=== PATIENT | female | born 1950 | race Caucasian/White ===

== ENCOUNTER 2020-09-19 12:24 | Emergency (ER) | payer MEDICARE, BC ==
[2020-09-19] MEDS ORDERED: Sodium Chloride 0.9% 10 ML Syringe FLUSH PRN (12:47)
--- NOTE | 2020-09-19 12:47 | EDM.PDOC ---
ED HPI GENERAL MEDICAL PROBLEM - General Chief Complaint: Respiratory Problem Stated Complaint: covid positive, coughing, "cant breath" Time Seen by Provider: 09/19/20 12:25 Source of Information: Reports: Patient. Denies: Old Records (No [facility] records available) History Limitations: Reports: No Limitations - History of Present Illness INITIAL COMMENTS - FREE TEXT/NARRATIVE: Patient drove herself to the emergency room for evaluation of the 2-day history of progressive nonspecific dyspnea with patient diagnosed with COVID-19 1 week ago and is about ready to end her quarantine on 09/22/2020. She continues to have intermittent nonspecific fever and chills, however not this morning with no recent antipyretic medications taken. She also has occasional nonspecific GI complaints, including occasional nausea with one episode of emesis yesterday. The patient also denies any recent wheezing, dyspnea, etc., although somewhat worsening nonproductive cough during the last couple of days. No recent history of abdominal pain, heartburn, diarrhea, melena, gross hematochezia, or any food intolerance, including fatty foods, etc.. The patient denies any chest p ain/pressure, heart flutter, dizziness, orthostasis, orthopnea, diaphoresis, paresthesias, recent decreased exercise tolerance, or any other anginal-type symptoms. She denies any gross hematuria, colic, or other UTI symptoms. Patient denies any specific other pain or discomfort. Onset: Gradual Duration: Getting Worse Location: Reports: Other (No pain) Severity: Moderate Improves with: Reports: Rest Worsens with: Reports: Movement (Activity) Context: Reports: Sick Contact (COVID-19 as above), Other (As above). Denies: Trauma Associated Symptoms: Reports: Cough, Fever/Chills, Nausea/Vomiting, Shortness of Breath. Denies: Confusion, Chest Pain, cough w sputum, Diaphoresis, Headaches, Loss of Appetite, Malaise, Rash, Weakness Treatments SPEAR FISHER: Reports: Other (see below) (None) - Related Data Allergies Allergy/AdvReac Type Severity Reaction Status Date / Time No Known Allergies Allergy Verified 09/19/20 12:25 Home Meds: Home Meds Insulin Glargine,Hum.Rec.Anlog [Basaglar Kwikpen U-100] 32 units SQ DAILY 09/19/20 [History] Losartan [Cozaar] 25 mg PO DAILY 09/19/20 [History] Simvastatin 20 mg PO BEDTIME 09/19/20 [History] metFORMIN [Glucophage XR] 500 mg PO BIDMEALS 09/19/20 [History] Past Medical History HEENT History: Reports: Impaired Vision, Other (See Below) Other HEENT History: The patient wears glasses. Cardiovascular History: Reports: High Cholesterol, Hypertension. Denies: Afib, Aneurysm, Arrhythmia, Blood Clots/VTE/DVT, CAD, Heart Failure, Heart Murmur, Syncope Respiratory History: Denies: Asthma, COPD Musculoskeletal History: Reports: Arthritis, Osteoarthritis Endocrine/Metabolic History: Reports: Diabetes, Type II, IDDM - Infectious Disease History Infectious Disease History: Reports: Novel Coronavirus (COVID-19 09/12/2020) Social & Family History - Tobacco Use Tobacco Use Status *Q: Never Tobacco User Tobacco Use Within Last Twelve Months: No Used Tobacco, but Quit: No Smoking Cessation Information Provided To Patient: No Second Hand Smoke Exposure: No Second Hand Smoke Education Provided: No ED ROS GENERAL - Review of Systems Review Of Systems: Comprehensive ROS is negative, except as noted in HPI. ED EXAM, GENERAL - Physical Exam Exam: See Below Exam Limited By: No Limitations General Appearance: Alert, WD/WN, No Apparent Distress Eye Exam: Bilateral Eye: EOMI, Normal Inspection (No vertical nystagmus. Patient does wear glasses.), PERRL Ears: Normal External Exam, Normal Canal, Hearing Grossly Normal, Normal TMs Nose: Normal Mucosa, No Blood, Nasal Drainage, Clear Rhinorrhea Throat/Mouth: Normal Inspection, Normal Lips, Normal Teeth, Normal Gums, Normal Oropharynx, Normal Voice, No Airway Compromise. No: Dysphagia, Perioral Cyanosis Head: Atraumatic, Normocephalic. No: Facial Swelling, Facial Tenderness, Sinus Tenderness Neck: Normal Inspection, Supple, Non-Tender, Full Range of Motion. No: Lymphadenopathy (L), Lymphadenopathy (R), Thyromegaly Respiratory/Chest: No Respiratory Distress, No Accessory Muscle Use, Chest Non- Tender, Rales (Mild occasional bilateral rales). No: Rhonchi, Wheezing, Pleural Rub, Retractions Cardiovascular: Normal Peripheral Pulses, Regular Rate, Rhythm, No Edema, No Gallop, No JVD, No Murmur, No Rub, Tachycardia (Occasional borderline). No: Gallop/S3, Gallop/S4, Friction Rub Peripheral Pulses: 2+: Radial (L), Radial (R) GI/Abdominal: Normal Bowel Sounds, Soft, Non-Tender, No Organomegaly, No Distention, No Abnormal Bruit, No Mass, Other (Obese). No: Guarding (Female) Exam: Deferred Rectal (Female) Exam: Deferred Back Exam: Normal Inspection, Full Range of Motion. No: CVA Tenderness (L), CVA Tenderness (R) Extremities: Normal Inspection, Normal Range of Motion, Non-Tender, No Pedal Edema, Normal Capillary Refill. No: Jose's Sign Neurological: Alert, Oriented, CN II-XII Intact, Normal Cognition, Normal Gait, No Motor/Sensory Deficits Psychiatric: Normal Affect, Normal Mood Skin Exam: Warm, Dry, Intact, Normal Color, No Rash. No: Diaphoretic, Wound/Incision Lymphatic: No Adenopathy #1 Interpretation EKG Date: 09/19/20 Time: 13:15 Rhythm: NSR Rate (Beats/Min): 98 [place]: Normal (Neutral cardiac access) P-Wave: Present QRS: Normal ST-T: Normal QT: Normal IN/PQ Interval: 0.14 seconds representing a borderline short IN interval with no delta waves noted. Extreme poor R wave progression in the anterior leads. Comparison: NA - No Prior EKG EKG Interpretation Comments: 1. No acute ischemic changes 2. Borderline short IN interval Course - Vital Signs Last Recorded V/S: Last Vital Signs Temp 37.7 C 09/19/20 17:45 Pulse 97 09/19/20 17:45 Resp 17 09/19/20 17:45 BP 124/81 09/19/20 17:45 Pulse Ox 94 L 09/19/20 17:45 Vital Signs - 24 hr 09/19/20 09/19/20 09/19/20 12:30 15:23 15:39 Temperature [ 37.1 C 37.6 C 37.7 C Temporal] Pulse, 102 H 93 97 Peripheral [ Left Pulse Oximetry] Respiratory 18 18 17 Rate Blood Pressure 123/71 125/69 128/77 [Right Upper Arm] O2 Sat by Pulse 95 96 93 L Oximetry 09/19/20 09/19/20 09/19/20 15:54 16:09 16:24 Temperature [ 37.6 C 37.9 C 37.9 C Temporal] Pulse, 94 93 96 Peripheral [ Left Pulse Oximetry] Respiratory 17 16 18 Rate Blood Pressure 134/93 H 101/74 117/98 H [Right Upper Arm] O2 Sat by Pulse 93 L 93 L 94 L Oximetry 09/19/20 09/19/20 09/19/20 16:39 16:54 17:09 Temperature [ 37.9 C 37.9 C 37.9 C Temporal] Pulse, 96 98 98 Peripheral [ Left Pulse Oximetry] Respiratory 16 16 16 Rate Blood Pressure 117/89 120/64 123/67 [Right Upper Arm] O2 Sat by Pulse 93 L 94 L 94 L Oximetry 09/19/20 09/19/20 17:24 17:45 Temperature [ 37.9 C 37.7 C Temporal] Pulse, 98 97 Peripheral [ Left Pulse Oximetry] Respiratory 16 17 Rate Blood Pressure 120/83 124/81 [Right Upper Arm] O2 Sat by Pulse 94 L 94 L Oximetry - Orders/Labs/Meds Orders: Active Orders 24 hr Category Date Time Status Chest 1V Frontal [CR] Stat Exams 09/19/20 12:47 Taken Chest PE [Ang Chest] [CT] Stat Exams 09/19/20 13:47 Taken Venous Doppler Lwr Ext Bi [US] Urgent Exams 09/19/20 13:48 Taken CULTURE BLOOD [BC] Stat Lab 09/19/20 13:00 Received CULTURE BLOOD [BC] Stat Lab 09/19/20 13:08 Received Blood Culture x2 Reflex Set [OM.PC] Stat Oth 09/19/20 12:47 Ordered Isolation [COMM] Routine Oth 09/19/20 12:48 Active Obtain Past Medical Record [OM.PC] Stat Oth 09/19/20 12:47 Active Peripheral IV Insertion Adult [OM.PC] Stat Oth 09/19/20 12:47 Ordered Resuscitation Status Routine Resus Stat 09/19/20 12:47 Ordered Labs: Laboratory Tests 09/19/20 09/19/20 09/19/20 Range/Units 13:00 13:00 13:00 WBC 3.0 L (4.0-10.2) K/uL RBC 4.38 (3.77-5.09) M/uL Hgb 12.8 (11.7-15.5) g/dL Hct 39.5 (34.0-46.0) % MCV 90.2 (84.0-98.0) fL MCH 29.2 (28.2-33.3) pg MCHC 32.4 (31.7-36.0) g/dL RDW 13.6 (11.2-14.1) % Plt Count 156 (150-350) K/uL Neut % (Auto) 49.1 (45.0-80.0) % Lymph % (Auto) 42.2 (10.0-50.0) % [place] % (Auto) 8.4 (2.0-14.0) % Eos % (Auto) 0.0 (0.0-5.0) % Baso % (Auto) 0.3 (0.0-2.0) % Neut # (Auto) 1.45 (1.40-7.00) K/uL Lymph # (Auto) 1.25 (0.50-3.50) K/uL [place] # (Auto) 0.25 (0.00-1.00) K/uL Eos # (Auto) 0.00 (0.00-0.50) K/uL Baso # (Auto) 0.01 (0.00-0.20) K/uL PT 9.9 (9.5-12.0) SEC INR 1.0 APTT 29.7 (24.5-32.8) SEC D-Dimer, Quantitative 2300 H (0-400) ng/mL Sodium (136-145) mmol/L Potassium (3.5-5.1) mmol/L Chloride (98-107) mmol/L Carbon Dioxide (21.0-32.0) mmol/L BUN (7-18) mg/dL Creatinine (0.51-1.17) mg/dL Est Cr Clr Drug Dosing mL/min Estimated GFR (MDRD) mL/min Glucose (74-106) mg/dL Lactic Acid (0.4-2.0) mmol/L Calcium (8.5-10.1) mg/dL Magnesium (1.8-2.4) mg/dL Total Bilirubin (0.2-1.0) mg/dL AST (15-37) U/L ALT (12-78) U/L Alkaline Phosphatase (46-116) IU/L Creatine Kinase (26-308) U/L Creatine Kinase Index (0.0-2.5) % CK-MB (CK-2) (0.00-3.60) ng/mL Troponin I (0.000-0.056) ng/mL NT-Pro-B Natriuret Pep (0-125) pg/mL Total Protein (6.4-8.2) g/dL Albumin (3.4-5.0) g/dL TSH, Ultra Sensitive (0.358-3.740) mIU/mL 09/19/20 09/19/20 Range/Units 13:00 13:00 WBC (4.0-10.2) K/uL RBC (3.77-5.09) M/uL Hgb (11.7-15.5) g/dL Hct (34.0-46.0) % MCV (84.0-98.0) fL MCH (28.2-33.3) pg MCHC (31.7-36.0) g/dL RDW (11.2-14.1) % Plt Count (150-350) K/uL Neut % (Auto) (45.0-80.0) % Lymph % (Auto) (10.0-50.0) % [place] % (Auto) (2.0-14.0) % Eos % (Auto) (0.0-5.0) % Baso % (Auto) (0.0-2.0) % Neut # (Auto) (1.40-7.00) K/uL Lymph # (Auto) (0.50-3.50) K/uL [place] # (Auto) (0.00-1.00) K/uL Eos # (Auto) (0.00-0.50) K/uL Baso # (Auto) (0.00-0.20) K/uL PT (9.5-12.0) SEC INR APTT (24.5-32.8) SEC D-Dimer, Quantitative (0-400) ng/mL Sodium 135 L (136-145) mmol/L Potassium 3.9 (3.5-5.1) mmol/L Chloride 100 (98-107) mmol/L Carbon Dioxide 25.0 (21.0-32.0) mmol/L BUN 16 (7-18) mg/dL Creatinine 0.90 (0.51-1.17) mg/dL Est Cr Clr Drug Dosing 60.35 mL/min Estimated GFR (MDRD) > 60 mL/min Glucose 121 H (74-106) mg/dL Lactic Acid 1.1 (0.4-2.0) mmol/L Calcium 8.3 L (8.5-10.1) mg/dL Magnesium 1.7 L (1.8-2.4) mg/dL Total Bilirubin 0.6 (0.2-1.0) mg/dL AST 40 H (15-37) U/L ALT 38 (12-78) U/L Alkaline Phosphatase 83 (46-116) IU/L Creatine Kinase 69 (26-308) U/L Creatine Kinase Index 0.7 (0.0-2.5) % CK-MB (CK-2) 0.50 (0.00-3.60) ng/mL Troponin I 0.000 (0.000-0.056) ng/mL NT-Pro-B Natriuret Pep 42 (0-125) pg/mL Total Protein 7.5 (6.4-8.2) g/dL Albumin 3.4 (3.4-5.0) g/dL TSH, Ultra Sensitive 1.522 (0.358-3.740) mIU/mL Meds: Medications Discontinued Medications Generic Name Dose Route Start Last Admin Trade Name Freq PRN Reason Stop Dose Admin Diphenhydramine HCl 50 mg 09/19/20 14:08 Benadryl IVPUSH ONETIME PRN hypersensitivity reaction Epinephrine HCl 0.3 mg 09/19/20 14:08 Adrenalin IM ONETIME PRN hypersensitivity reaction Famotidine 20 mg 09/19/20 14:08 Pepcid IVPUSH ONETIME PRN hypersensitivity reaction Bamlanivimab 700 mg/ Sodium 270 mls @ 270 mls/hr 09/19/20 14:08 09/19/20 15:20 Chloride IV 09/19/20 14:09 270 mls/hr ONETIME ONE Administration Protocol Iopamidol 100 ml 09/19/20 13:00 Isovue-370 (76%) IVPUSH 09/19/20 13:01 ONETIME ONE Iopamidol Confirm 09/19/20 13:59 Isovue-370 (76%) Administered 09/19/20 14:00 Dose 100 ml .ROUTE .STK-MED ONE Methylprednisolone Sodium Succinate 125 mg 09/19/20 14:08 Solu-Medrol IVPUSH ONETIME PRN hypersensitivity reaction Sodium Chloride 10 ml 09/19/20 12:47 Saline Flush FLUSH ASDIRECTED PRN Keep Vein Open Sodium Chloride 30 ml 09/19/20 14:15 Saline Flush FLUSH ASDIRECTED NAVIN - Radiology Interpretation Free Text/Narrative:: monitor technician shows normal sinus rhythm with heart rate in the 90s to low 100s with no ectopy, arrhythmia, etc. Chest x-ray, portable, shows poor inspiratory film with somewhat prominent proximal aortic arch, however no significant cardiomegaly, CHF, pulmonary infiltrates, or pneumothorax. Official x-ray report did indicate some mild possible patchy infiltrates consistent with COVID-19. CTA of the chest using PE protocol was negative for PE with incidental pulmonary changes consistent with COVID-19 and also a small hiatal hernia. Preliminary verbal report from colin Sun tech, of the venous Doppler studies of the lower extremities were negative for DVT. Departure - Departure Time of Disposition: 18:00 Disposition: Home, Self-Care 01 Condition: Good Clinical Impression: COVID-19, Leukopenia, IDDM (insulin dependent diabetes mellitus), Hypertension, Obesity (BMI 30-39.9), Hyperlipidemia, Hypomagnesemia, Hyponatremia, Elevated LFTs, D-dimer, elevated - Discharge Information *PRESCRIPTION DRUG MONITORING PROGRAM REVIEWED*: Not Applicable *COPY OF PRESCRIPTION DRUG MONITORING REPORT IN PATIENT CHELLE: Not Applicable Referrals: Jovita Parsons NP [Primary Care Provider] - Forms: ED Department Discharge Additional Instructions: 1. Followup with your regular provider in 7-10 days as directed for reevaluation and recommended repeat chest x-ray, CBC, comprehensive metabolic panel, INR, PTT, magnesium level, BNP, troponin I and D-dimer. Bring these discharge instructions with you to that visit. 2. Tylenol 650 mg by mouth every 4 hours and/or OTC ibuprofen 2-3 tabs by mouth every 6 hours with food as directed./needed. You may stagger these medications for 48-72 hours only, which essentially means that you are receiving a pain medication about every 2 hours. 3. Maintain quarantine precautions and restrictions as previously directed 4. Immediately after this visit verify that your cellular telephone's voicemail has been activated and is empty. Also verify that your home telephone's answering machine is operating properly and has space to receive messages. Note that it is sometimes necessary for us to be able to contact you at a later date to discuss your medical care. 5. Please remember that we are ALWAYS here for you and want to answer any questions you may have. Feel free to call the hospital any time and we call you back VESTA. Sepsis Event Note (ED) - Evaluation Sepsis Screening Result: No Definite Risk - Focused Exam Vital Signs: Vital Signs Temp Pulse Resp BP Pulse Ox 09/19/20 17:45 37.7 C 97 17 124/81 94 L 09/19/20 17:24 37.9 C 98 16 120/83 94 L 09/19/20 17:09 37.9 C 98 16 123/67 94 L 09/19/20 16:54 37.9 C 98 16 120/64 94 L 09/19/20 16:39 37.9 C 96 16 117/89 93 L 09/19/20 16:24 37.9 C 96 18 117/98 H 94 L 09/19/20 16:09 37.9 C 93 16 101/74 93 L 09/19/20 15:54 37.6 C 94 17 134/93 H 93 L 09/19/20 15:39 37.7 C 97 17 128/77 93 L 09/19/20 15:23 37.6 C 93 18 125/69 96 09/19/20 12:30 37.1 C 102 H 18 123/71 95 - Problem List & Annotations (1) COVID-19 SNOMED Code(s): 080711698 Code(s): U07.1 - COVID-19 Status: Acute Priority: High Onset Date: 09/19/20 Annotation/Comment:: Various therapeutic options were discussed with the patient discussing the risk and benefits of bamlanivimab therapy, including providing the information sheet, which she did sign. She is not a candidate for hospitalization, IV remdesivir, IV Decadron, convalescent plasma, etc. at this time with O2 saturations on room air in the mid 90th percentile. Continue quarantine precautions as previously directed with close follow-up by regular provider as per discharge instructions. Mild viral bronchitis with no evidence of significant pneumonia by today's chest x-ray. (2) D-dimer, elevated SNOMED Code(s): 668186425 Code(s): R79.89 - OTHER SPECIFIED ABNORMAL FINDINGS OF BLOOD CHEMISTRY Status: Acute Priority: High Onset Date: 09/19/20 Annotation/Comment:: CTA of the chest and venous Doppler study of the right lower extremity results were negative as above. D-dimer elevation likely secondary to current inflammatory changes from her COVID-19 bronchitis versus pneumonia. (3) Leukopenia SNOMED Code(s): 70736240, 597127985 Code(s): D72.819 - DECREASED WHITE BLOOD CELL COUNT, UNSPECIFIED Status: Acute Priority: High Onset Date: 09/19/20 Annotation/Comment:: Likely secondary to current viral infection. Observe closely by regular provider. Qualifiers: Leukopenia type: neutropenia Neutropenia type: other Qualified Code(s): D70.8 - Other neutropenia (4) IDDM (insulin dependent diabetes mellitus) SNOMED Code(s): 68878663 Code(s): RMI2385 - Status: Chronic Priority: Medium Annotation/Comment:: Patient only occasionally checks her Accu-Cheks with patient encouraged to take her Accu-Cheks at least on a twice daily basis secondary to current infection. Random blood sugar of 121 today. (5) Hypertension SNOMED Code(s): 58676273 Code(s): I10 - ESSENTIAL (PRIMARY) HYPERTENSION Status: Chronic Priority: Medium Annotation/Comment:: Overall good control in the emergency room. Qualifiers: Hypertension type: essential hypertension Qualified Code(s): I10 - Essential (primary) hypertension (6) Obesity (BMI 30-39.9) SNOMED Code(s): 099037833, 146754178 Code(s): E66.9 - OBESITY, UNSPECIFIED Status: Chronic Priority: Medium Annotation/Comment:: Weight loss in moderation advisable (7) Hyperlipidemia SNOMED Code(s): 26793186 Code(s): E78.5 - HYPERLIPIDEMIA, UNSPECIFIED Status: Chronic Priority: Medium Annotation/Comment:: Currently under therapy Qualifiers: Hyperlipidemia type: unspecified Qualified Code(s): E78.5 - Hyperlipidemia, unspecified (8) Elevated LFTs SNOMED Code(s): 021853296, 419515431 Code(s): R79.89 - OTHER SPECIFIED ABNORMAL FINDINGS OF BLOOD CHEMISTRY Status: Acute Priority: Medium Onset Date: 09/19/20 Annotation/Comment:: Likely secondary to fatty liver (9) Hypomagnesemia SNOMED Code(s): 474832165 Code(s): E83.42 - HYPOMAGNESEMIA Status: Acute Priority: Medium Onset Date: 09/19/20 Annotation/Comment:: Observe for now with close follow-up by regular provider. (10) Hyponatremia SNOMED Code(s): 68185022 Code(s): E87.1 - HYPO-OSMOLALITY AND HYPONATREMIA Status: Acute Priority: Medium Onset Date: 09/19/20 Annotation/Comment:: Observe for now with no clinical evidence of CHF (11) Hiatal hernia SNOMED Code(s): 68338598 Code(s): K44.9 - DIAPHRAGMATIC HERNIA WITHOUT OBSTRUCTION OR GANGRENE Status: Acute Priority: Medium Onset Date: 09/19/20 Annotation/Comment:: Incidental finding by CTA of the chest as above. Observe for now. - Problem List Review Problem List Initiated/Reviewed/Updated: Yes - My Orders Last 24 Hours: My Active Orders 09/19/20 12:47 Chest 1V Frontal [CR] Stat Blood Culture x2 Reflex Set [OM.PC] Stat Obtain Past Medical Record [OM.PC] Stat Peripheral IV Insertion Adult [OM.PC] Stat Resuscitation Status Routine 09/19/20 12:48 Isolation [COMM] Routine 09/19/20 13:00 CULTURE BLOOD [BC] Stat 09/19/20 13:08 CULTURE BLOOD [BC] Stat 09/19/20 13:47 Chest PE [Ang Chest] [CT] Stat 09/19/20 13:48 Venous Doppler Lwr Ext Bi [US] Urgent - Assessment/Plan Last 24 Hours: My Active Orders 09/19/20 12:47 Chest 1V Frontal [CR] Stat Blood Culture x2 Reflex Set [OM.PC] Stat Obtain Past Medical Record [OM.PC] Stat Peripheral IV Insertion Adult [OM.PC] Stat Resuscitation Status Routine 09/19/20 12:48 Isolation [COMM] Routine 09/19/20 13:00 CULTURE BLOOD [BC] Stat 09/19/20 13:08 CULTURE BLOOD [BC] Stat 09/19/20 13:47 Chest PE [Ang Chest] [CT] Stat 09/19/20 13:48 Venous Doppler Lwr Ext Bi [US] Urgent Assessment:: As above Plan: As above. Extensive precautions were given to the patient, who is in agreement with the treatment plan. See Patient Instructions for further treatment and plan.
[2020-09-19] MEDS ORDERED: Iopamidol 755 Mg/ML 100 ML Bottle IVPUSH ONE (13:00)
[2020-09-19 13:31] LABS: PTT,PARTIAL THROMBOPLSTIN TIME 29.7 SEC (24.5-32.8)
[2020-09-19 13:45] LABS: CHLORIDE,CL 100 mmol/L (98-107); SODIUM,NA 135 mmol/L (136-145)
[2020-09-19] MEDS ORDERED: Iopamidol 755 Mg/ML 100 ML Bottle ONE (13:59)
[2020-09-19] MEDS ORDERED: methylPREDNISolone Sodium Succinate 125 MG/2 ML SDV IVPUSH PRN (14:08)
[2020-09-19] MEDS ORDERED: EPINEPHrine 1 MG/1 ML Amp IM PRN (14:08)
[2020-09-19] MEDS ORDERED: Famotidine 20 MG/2 ML SDV IVPUSH PRN (14:08)
[2020-09-19] MEDS ORDERED: diphenhydrAMINE 50 MG/ML SDV IVPUSH PRN (14:08)
[2020-09-19] MEDS ORDERED: Sodium Chloride 0.9% 10 ML Syringe FLUSH SCH (14:15)
[2020-09-19] MEDS ORDERED: Sodium Chloride 0.9% 250 ML IV ONE (15:30)
== END 2020-09-19 18:00 | disposition home or self-care (01) ==
LOC: LL.ED 12:24
DX: U07.1 COVID-19 (principal); D72.819 Decreased white blood cell count, unspecified; E11.9 Type 2 diabetes mellitus without complications; I10 Essential (primary) hypertension; E66.9 Obesity, unspecified; E78.5 Hyperlipidemia, unspecified; E83.42 Hypomagnesemia; E87.1 Hypo-osmolality and hyponatremia; R79.89 Other specified abnormal findings of blood chemistry; R79.1 Abnormal coagulation profile; Z79.4 Long term (current) use of insulin; Z79.899 Other long term (current) drug therapy
CPT/HCPCS: 36415; 71045; 71275; 80053; 82550; 82553; 83605; 83735; 83880; 84443; 84484; 85025; 85379; 85610; 85730; 87040; 87804; 93005; 93970; 96365; 99285-25; J7050; Q9967